=== PATIENT | male | born 1970 | race African-American/Black ===

== ENCOUNTER 2020-09-25 01:35 | Emergency (ER) | payer SELFPAY ==
[2020-09-25] MEDS ORDERED: Sodium Bicarb 50 MEQ/50 ML Abboject 8.4% SYRINGE ONE (09:00)
[2020-09-25] MEDS ORDERED: Dextrose 50% Abboject 50 ML SYRINGE ONE (09:00)
[2020-09-25] MEDS ORDERED: EPINEPHrine 1 MG/10 ML Abboject SYRINGE ONE (09:00)
[2020-09-25] MEDS ORDERED: Calcium Chloride 1 GM/10 ML Abboject SYRINGE ONE (09:00)
== END 2020-09-25 06:50 | disposition expired ==
LOC: NAV ERS 01:35 → EDBD 01:35 → NAV ERS 06:50
DX: I46.9 Cardiac arrest, cause unspecified (principal)
CPT/HCPCS: 31500; 92950; 96374; 96375; J0171